=== PATIENT | female | born 1995 | race Caucasian/White ===

== ENCOUNTER 2017-03-07 19:54 | Emergency (ER) | payer OTHER ==
--- NOTE | 2017-03-08 06:56 | RAD ---
KNEE- RIGHT 4 OR MORE VIEWS COMPARISON: None. HISTORY: Chronic right knee pain. VIEWS: Right knee standing AP, standing PA, lateral, and sunrise FINDINGS: Bones: Normal. Joints: Normal Soft tissue: Normal. IMPRESSION: Normal 4 views of the right knee.
== END 2017-03-07 22:13 | disposition home or self-care (01) ==
LOC: ED 19:54
DX: M25.562 Pain in left knee (principal); M25.561 Pain in right knee